=== PATIENT | female | born 1995 | race Hispanic/Latino ===

== ENCOUNTER 2018-09-24 13:00 | Emergency (ER) | payer OTHER, SELFPAY ==
[2018-09-24 13:05] VITALS: BP 98/56; PULSE 74; RESP 15; TEMP 36.4; O2SAT 100; BMI 35.5
--- NOTE | 2018-09-24 13:53 | ED.SOB ---
HPI - SOB/Dyspnea <LEANN Reich - Last Filed: 09/24/18 21:28> General Chief Complaint: Shortness of Breath/Dyspnea Stated Complaint: chest pain, hard time breathing Time Seen by Provider: 09/24/18 13:19 Source: patient Mode of arrival: ambulatory Limitations: no limitations History of Present Illness 23-year-old healthy female that is a nonsmoker here for complaint of having chest pain and back pain over the past several days. She was seen in the walk-in clinic and treated for this for muscle pain she reports that the pain has not resolved. She was seen in [facility] emergency room yesterday and had a complete cardiac workup that was unremarkable With negative troponin and negative D-dimer. She returns today because she is having a chest pain into the right side of her chest that she started with this morning. She denies any stressors or relievers of her discomfort. She denies any shortness of breath. No fevers no chills. She is ambulatory into the emergency room. She denies any other concerns or complaints at this time. Related Data Home Medications Medication Instructions Recorded Confirmed No Known Home Medications 09/24/18 09/24/18 Allergies Allergy/AdvReac Type Severity Reaction Status Date / Time ceftriaxone Allergy Mild Rash Verified 09/24/18 13:05 ibuprofen Allergy Verified 09/24/18 13:05 Review of Systems <LEANN Reich - Last Filed: 09/24/18 21:28> Review of Systems All systems reviewed & are unremarkable except as noted in HPI and below Constitutional Denies chills, Denies fatigue, Denies fever(s), Denies lethargy and Denies weakness Eyes Denies change in vision, Denies eye discharge, Denies irritation and Denies loss of vision ENT Ears, Nose, Mouth, and Throat: Denies change in voice, Denies neck pain and Denies sore throat Cardiovascular Denies dyspnea and Denies dyspnea on exertion Comments: Chest pain Respiratory Denies cough, Denies dyspnea, Denies dyspnea on exertion and Denies wheezing Gastrointestinal Gastrointestinal: Denies abdominal pain, Denies change in bowel habits, Denies diarrhea, Denies nausea and Denies vomiting Genitourinary Denies hematuria, Denies flank pain, Denies urinary incontinence and Denies urinary urgency Musculoskeletal Denies neck pain Comments: back pain Integumentary/Breasts Denies pruritus, Denies erythema, Denies rash and Denies wounds Neurologic Denies confusion, Denies loss of vision and Denies weakness Psychiatric Denies anxiety, Denies confusion, Denies depression, Denies homicidal ideation and Denies suicidal ideation Endocrine Denies fatigue and Denies flushing Hematologic/Lymphatic Denies easy bruising Allergic/Immunologic Denies wheezing Exam <LEANN Reich - Last Filed: 09/24/18 21:28> Initial Vital Signs Initial Vital Signs: Vital Signs Temperature 97.5 F L 09/24/18 13:05 Pulse Rate 74 09/24/18 13:05 Respiratory Rate 15 09/24/18 13:05 Blood Pressure 98/56 L 09/24/18 13:05 Pulse Oximetry 100 09/24/18 13:05 Const General: cooperative and well developed Nutritional Appearance: well nourished Orientation: alert, awake, oriented x3 and not confused HENMT Mouth: oral mucosae normal, oropharynx normal and moist mucous membranes Eyes Conjunctivae: conjunctivae normal Sclera: sclerae normal Pupils: PERRL EOM: EOM intact bilaterally Chest Chest: normal inspection of the chest Other: pain on palpation to the right anterior chest wall no deformities to anterior chest Resp Effort & Inspection: normal respiratory effort, able to speak in complete sentences, no respiratory distress and no use of accessory muscles Auscultation: clear to auscultation bilaterally, no rales, no rhonchi and no wheezes Cardio Rate: regular rate Rhythm: regular rhythm Heart Sounds: no click, no gallops, no murmurs and no rubs Pulses: normal peripheral pulses GI Inspection: non-distended Palpation: soft, no hepatosplenomegaly, No guarding, No pulsatile mass and No tender Auscultation: normal bowel sounds Back/Spine/Pelvis Other: tenderness on palpation to the right thoracic paraspinal Skin General: no rashes or lesions noted, No jaundice and No petechiae Neuro General: alert, oriented x3, gait normal and no focal motor deficits Speech: speech normal <Kendal Bolanos DO - Last Filed: 09/25/18 07:21> Initial Vital Signs Initial Vital Signs: Vital Signs Temperature 97.5 F L 09/24/18 13:05 Pulse Rate 74 09/24/18 13:05 Respiratory Rate 15 09/24/18 13:05 Blood Pressure 98/56 L 09/24/18 13:05 Pulse Oximetry 100 09/24/18 13:05 Scores <LEANN Reich - Last Filed: 09/24/18 21:28> HEART Score Heart Score history: Slightly Suspicious Heart Score EKG: Normal Heart Score Age: < 45 years old Heart Score risk factors: No known risk factors Heart Score troponin: < or = to normal limit Heart Score Total: 0 Course <LEANN Reich - Last Filed: 09/24/18 21:28> Orders Ordered: ED Orders 09/24/18 13:13 EKG-12 Lead Stat 09/24/18 14:03 XR chest 1V Stat 09/24/18 14:46 Complete Blood Count AUTO DIFF Stat Comprehensive Metabolic Panel Stat Lipase Stat Troponin & CK Cardiac Panel Stat Vital Signs - 8 hr 09/24/18 16:15 Pulse Rate 76 Blood Pressure 98/64 Pulse Oximetry 99 <Kendal Bolanos DO - Last Filed: 09/25/18 07:21> Orders Ordered: ED Orders 09/24/18 13:13 EKG-12 Lead Stat 09/24/18 14:03 XR chest 1V Stat 09/24/18 14:46 Complete Blood Count AUTO DIFF Stat Comprehensive Metabolic Panel Stat Lipase Stat Troponin & CK Cardiac Panel Stat Vital Signs - 8 hr 09/24/18 16:15 Pulse Rate 76 Blood Pressure 98/64 Pulse Oximetry 99 MDM - SOB/Dyspnea <LEANN Reich - Last Filed: 09/24/18 21:28> Lab Data Result diagrams: 09/24/18 14:46 09/24/18 14:46 Lab Results 09/24/18 09/24/18 Range/Units 14:46 14:46 WBC 6.9 (4.5-11.0) X10^3/uL RBC 4.30 (4.0-5.2) X10^6/uL Hgb 12.7 (12.0-16.0) g/dL Hct 36.2 (36-46) % MCV 84.4 (80-100) fL MCH 29.6 (26-34) PG MCHC 35.1 (30-36) % RDW 12.8 (11.6-14.8) % Plt Count 221 (150-400) X10^3/uL Neut % (Auto) 58.6 (50-75) % Lymph % (Auto) 31.6 (25-40) % [place] % (Auto) 6.4 (3-14) % Eos % (Auto) 3.0 (2-4) % Baso % (Auto) 0.4 (0-2) % Neut # (Auto) 4000 (6163-0163) /uL Sodium 143 (137-145) mmol/L Potassium 4.2 (3.4-5.1) mmol/L Chloride 103 (98-107) mmol/L Carbon Dioxide 28 (22-32) mmol/L BUN 13 (7-17) mg/dL Creatinine 0.70 (0.52-1.04) mg/dL Estimated GFR > 60.0 (>60) mL/min BUN/Creatinine Ratio 18.6 (6-22) Glucose 93 (70-100) mg/dL Calcium 9.0 (8.4-10.2) mg/dL Total Bilirubin 0.5 (0.2-1.3) mg/dL AST 49 H (14-36) IU/L ALT 77 H (9-52) IU/L Alkaline Phosphatase 60 (38-126) U/L Total Creatine Kinase 77 (30-135) U/L CK-MB (CK-2) TNP CK-MB (CK-2) Rel Index TNP Troponin I < 0.012 (0.01-0.034) ng/mL Total Protein 7.2 (6.3-8.2) g/dL Albumin 4.2 (3.5-5.0) g/dL Globulin 3.0 (1.7-4.1) g/dL Albumin/Globulin Ratio 1.4 (1.0-2.8) Lipase 72 (23-300) U/L Imaging Data Chest x-ray: Radiologist's impression: [address] [address] XRay Report Signed Patient: Lubna Gann#: [id number] : 1995Acct:[id number] Age/Sex: 23 / FDate of Service: 09/24/18 Loc: ED Accession Number: [id number] Procedure: XR chest 1V Ordering Provider: Bryce Aragon PROCEDURE: XR CHEST 1V INDICATIONS: chest pain last several days TECHNIQUE: One view of the chest was acquired. COMPARISON: None. FINDINGS: Surgical changes and devices: None. Lungs and pleura: Increased density within the lung bases is identified, predominantly seen within the bilateral perihilar regions (right greater than left). No pneumothorax or pleural effusion is evident. Mediastinum: Mediastinal contours appear normal. Heart size is normal. Bones and chest wall: No suspicious bony lesions. Overlying soft tissues appear unremarkable. IMPRESSION: Vague increased density within the lung bases may represent vascular crowding from shallow inspiration. A superimposed breast tissue may result in this appearance. However, a pneumonia cannot be excluded. Please correlate clinically. Dictated by: Grzegorz Santos M.D. on 09/24/2018 at 13:35 Approved by: Grzegorz Santos M.D. on 09/24/2018 at 13:37 MDM Narrative Medical decision making narrative: EKG shows normal sinus rhythm with no ST elevation or depression. No ectopy. Chest x-ray was obtained was negative. Repeat of the troponin was obtained today and was negative. CBC and Chem panel were obtained were unremarkable. Pain was reproducible with palpation to the anterior chest wall and also to the thoracic paraspinals suggesting muscle skeletal chest wall pain. [id number] Tylenol or Motrin as needed for any discomfort. Rest area. Follow up with primary care provider next week for re-evaluation. If continued symptoms further tested may be warranted such as echo/stress test for any worsening symptoms return to the emergency room <Kendal Bolanos, - Last Filed: 09/25/18 07:21> Lab Data Lab Results 09/24/18 09/24/18 Range/Units 14:46 14:46 WBC 6.9 (4.5-11.0) X10^3/uL RBC 4.30 (4.0-5.2) X10^6/uL Hgb 12.7 (12.0-16.0) g/dL Hct 36.2 (36-46) % MCV 84.4 (80-100) fL MCH 29.6 (26-34) PG MCHC 35.1 (30-36) % RDW 12.8 (11.6-14.8) % Plt Count 221 (150-400) X10^3/uL Neut % (Auto) 58.6 (50-75) % Lymph % (Auto) 31.6 (25-40) % [place] % (Auto) 6.4 (3-14) % Eos % (Auto) 3.0 (2-4) % Baso % (Auto) 0.4 (0-2) % Neut # (Auto) 4000 (2285-2445) /uL Sodium 143 (137-145) mmol/L Potassium 4.2 (3.4-5.1) mmol/L Chloride 103 (98-107) mmol/L Carbon Dioxide 28 (22-32) mmol/L BUN 13 (7-17) mg/dL Creatinine 0.70 (0.52-1.04) mg/dL Estimated GFR > 60.0 (>60) mL/min BUN/Creatinine Ratio 18.6 (6-22) Glucose 93 (70-100) mg/dL Calcium 9.0 (8.4-10.2) mg/dL Total Bilirubin 0.5 (0.2-1.3) mg/dL AST 49 H (14-36) IU/L ALT 77 H (9-52) IU/L Alkaline Phosphatase 60 (38-126) U/L Total Creatine Kinase 77 (30-135) U/L CK-MB (CK-2) TNP CK-MB (CK-2) Rel Index TNP Troponin I < 0.012 (0.01-0.034) ng/mL Total Protein 7.2 (6.3-8.2) g/dL Albumin 4.2 (3.5-5.0) g/dL Globulin 3.0 (1.7-4.1) g/dL Albumin/Globulin Ratio 1.4 (1.0-2.8) Lipase 72 (23-300) U/L Discharge Plan Departure Patient Disposition: Home Clinical Impression: Acute chest wall pain Discharge Date/Time: 09/24/18 16:16 Interventions: ED Discharge Assessment Last Done: 09/24/18 16:15 Instructions: DI for Atypical Chest Pain Activity Restrictions/Additional Instructions: laboratory results and imaging today were unremarkable. EKG was normal. Signs and symptoms presents as anterior muscle skeletal chest wall pain. Rest area. Use sacf-oor-stcaith Tylenol or Motrin as needed for any discomfort. Follow up with primary care provider next week. If having continued chest pain that does not resolve further testing may be warranted. for any worsening symptoms return to Prescriptions: No Action No Known Home Medications RF: 0 Referrals: [facility] [Provider Group] <Kendal Bolanos DO - Last Filed: 09/25/18 07:21> Cosign ED Attending Cosignature Attestation: I was immediately available in the department for consultation. This documentation has been reviewed and I agree with assessment and plan. Supervised by Kendal Bolanos DO
--- NOTE | 2018-09-24 14:03 | DI.RAD.S_ITS ---
PROCEDURE: XR CHEST 1V INDICATIONS: chest pain last several days TECHNIQUE: One view of the chest was acquired. COMPARISON: None. FINDINGS: Surgical changes and devices: None. Lungs and pleura: Increased density within the lung bases is identified, predominantly seen within the bilateral perihilar regions (right greater than left). No pneumothorax or pleural effusion is evident. Mediastinum: Mediastinal contours appear normal. Heart size is normal. Bones and chest wall: No suspicious bony lesions. Overlying soft tissues appear unremarkable. IMPRESSION: Vague increased density within the lung bases may represent vascular crowding from shallow inspiration. A superimposed breast tissue may result in this appearance. However, a pneumonia cannot be excluded. Please correlate clinically. Dictated by: Grzegorz Santos M.D. on 09/24/2018 at 13:35 Approved by: Grzegorz Santos M.D. on 09/24/2018 at 13:37
[2018-09-24 14:56] LABS: Add Manual Diff / Slide Review NO; Basophils Percent Auto 0.4 % (0-2); Hematocrit 36.2 % (36-46); Hemoglobin 12.7 g/dL (12.0-16.0); Lymphocytes Percent Auto 31.6 % (25-40); Mean Corpuscular HGB Conc 35.1 % (30-36); Mean Corpuscular Hemoglobin 29.6 PG (26-34); Mean Corpuscular Volume 84.4 fL (80-100); Monocytes Percent Auto 6.4 % (3-14); Neutrophils Absolute Auto 4000 /uL (3000-5900); Neutrophils Percent Auto 58.6 % (50-75); Platelet Count 221 X10^3/uL (150-400); Red Cell Distribution Width 12.8 % (11.6-14.8); White Blood Cell Count 6.9 X10^3/uL (4.5-11.0)
[2018-09-24 15:09] LABS: Alanine Aminotransferase 77 IU/L (9-52); Albumin 4.2 g/dL (3.5-5.0); Albumin Globulin Ratio 1.4 (1.0-2.8); Alkaline Phosphatase 60 U/L (38-126); Aspartate Aminotransferase 49 IU/L (14-36); BUN Creatinine Ratio 18.6 (6-22); Bilirubin Total 0.5 mg/dL (0.2-1.3); Blood Urea Nitrogen 13 mg/dL (7-17); Carbon Dioxide 28 mmol/L (22-32); Chloride 103 mmol/L (98-107); Creatine Kinase 77 U/L (30-135); Estimated Glomerular Filt Rate > 60.0 mL/min (>60); Glucose 93 mg/dL (70-100); HEMOLYSIS < 15 (0-50); Lipase 72 U/L (23-300); Potassium 4.2 mmol/L (3.4-5.1); Sodium 143 mmol/L (137-145); Total Protein 7.2 g/dL (6.3-8.2)
[2018-09-24 15:23] LABS: Troponin I < 0.012 ng/mL (0.01-0.034)
[2018-09-24 16:15] VITALS: BP 98/64; PULSE 76; O2SAT 99
== END 2018-09-24 16:16 | disposition home or self-care (01) ==
PROVIDERS: Emergency Provider Nurse Practitioner Family
DX: R07.89 Other chest pain (principal)
CPT/HCPCS: 36415; 71045; 80053; 82550; 83690; 84484; 85025; 93005; 99282; 99285